=== PATIENT | male | born 1945 | race Caucasian/White ===

== ENCOUNTER 2021-03-26 01:31 | Inpatient (IN) | payer OTHER ==
[~2021-03-26] VITALS: Ht 175.3 cm; Wt 75.2 kg
[2021-03-26 02:22] LABS: Basophils # (auto) 0 10 ^3/uL (0-0.2); Basophils % (auto) 0.3 % (0.0-2.0); Eosinophils # (auto) 0 10 ^3/uL (0-0.8); Hematocrit 41.1 % (41.0-53.0); Hemoglobin 14.1 g/dL (13.5-17.5); Lymphocytes # (auto) 0.7 10 ^3/uL (0.4-5.4); Lymphocytes % (auto) 11.6 % (10.0-50.0); Mean Corpuscular Hemoglobin 30.3 pg (28.0-32.0); Mean Corpuscular Hgb Conc. 34.3 g/dL (32.0-36.0); Mean Corpuscular Volume 88.3 fL (80.0-100.0); Monocytes # (auto) 0.6 10 ^3/uL (0-1.3); Monocytes % (auto) 9.9 % (0.0-12.0); Neutrophils % (auto) 78.2 % (37.0-80.0); Nucleated Red Blood Cells % 0.1 %; Red Blood Cells 4.66 10^6/uL (4.5-5.90); Red Cell Distribution Width 13.8 % (11.8-14.3); White Blood Cell 6.4 10^3/uL (4.4-10.8)
[2021-03-26 02:36] LABS: INR 1.13 (0.9-1.15); Partial Thromboplastin Time 29.7 sec (23.6-33.0)
[2021-03-26 02:39] LABS: Alanine Aminotransferase 65 U/L (16-61); Albumin 2.5 g/dL (3.4-5.0); Anion Gap 9 (5-15); Aspartate Aminotransferase 91 U/L (15-37); BUN/Creatinine Ratio 19.6; Blood Urea Nitrogen 20 mg/dL (7-18); Calcium 8.4 mg/dL (8.5-10.1); Carbon Dioxide 25 mmol/L (21-32); Chloride 104 mmol/L (98-107); GFR African American 92 mL/min; GFR Non-African American 76 mL/min; Glucose 135 mg/dL (74-106); Magnesium 2.1 mg/dL (1.6-2.6); Potassium 4.1 mmol/L (3.5-5.1); Sodium 138 mmol/L (136-145)
[2021-03-26 02:44] LABS: Alkaline Phosphatase 106 U/L (45-117); Bilirubin, Total 0.4 mg/dL (0.2-1.0); Total Protein 6.5 g/dL (6.4-8.2)
[2021-03-26] MEDS ORDERED: IOHEXOL 350 MG/ML 100ML IJ ONE (04:12)
[2021-03-26] MEDS ORDERED: ONDANSETRON HCL 4 MG/2 ML VIAL IV PRN (06:15)
[2021-03-26] MEDS: SODIUM CHLORIDE 0.9% 1,000 ML IV SCH ×2 (06:15→23:00)
[2021-03-26] MEDS ORDERED: HYDROcodone-ACET 5/325MG TAB PO PRN (06:15)
[2021-03-26] MEDS ORDERED: NITROGLYCERIN 0.4 MG SL TAB SL PRN (06:15)
[2021-03-26] MEDS ORDERED: DOCUSATE SOD 100 MG CAP PO PRN (06:15)
[2021-03-26] MEDS ORDERED: MORPHINE SULFATE INJECTION 2 MG/ML SYRG IV PRN (06:15)
[2021-03-26 09:09] LABS: Basophils # (auto) 0 10 ^3/uL (0-0.2); Basophils % (auto) 0.4 % (0.0-2.0); Eosinophils # (auto) 0 10 ^3/uL (0-0.8); Hematocrit 42.4 % (41.0-53.0); Hemoglobin 14.3 g/dL (13.5-17.5); Lymphocytes % (auto) 14.6 % (10.0-50.0); Mean Corpuscular Hemoglobin 29.6 pg (28.0-32.0); Mean Corpuscular Hgb Conc. 33.7 g/dL (32.0-36.0); Mean Corpuscular Volume 87.8 fL (80.0-100.0); Monocytes # (auto) 0.7 10 ^3/uL (0-1.3); Monocytes % (auto) 9.7 % (0.0-12.0); Neutrophils # (auto) 5.2 10 ^3/uL (1.6-8.6); Neutrophils % (auto) 75.3 % (37.0-80.0); Nucleated Red Blood Cells % 0.1 %; Red Blood Cells 4.83 10^6/uL (4.5-5.90); Red Cell Distribution Width 13.3 % (11.8-14.3); White Blood Cell 6.9 10^3/uL (4.4-10.8)
[2021-03-26 09:17] LABS: Albumin 2.6 g/dL (3.4-5.0); Calcium 8.1 mg/dL (8.5-10.1); Magnesium 2.4 mg/dL (1.6-2.6)
[2021-03-26 09:20] LABS: BUN/Creatinine Ratio 21.5; Bilirubin, Total 0.4 mg/dL (0.2-1.0); Total Protein 5.8 g/dL (6.4-8.2)
[2021-03-26 09:27] LABS: Urine Bacteria NONE SEEN /hpf (None Seen); Urine Blood Negative /uL (Negative); Urine WBC <1 /hpf (0 - 3)
[2021-03-26 09:41] LABS: Urine Specific Gravity > 1.050 (1.001-1.035)
[2021-03-26] MEDS: BUDESONIDE (INHALATION) 180 MCG IH IN SCH ×3 (10:00→22:05)
[2021-03-26] MEDS ORDERED: AMLO5CAP40 PO (10:33)
[2021-03-26] MEDS ORDERED: ALBU2TAB4 PO (10:33)
[2021-03-26] MEDS ORDERED: MECL25TA18 PO (10:33)
[2021-03-26] MEDS ORDERED: FENO48TA12 OR (10:33)
[2021-03-26] MEDS ORDERED: SIMV-13 PO (10:33)
[2021-03-26] MEDS ORDERED: MONT-8 PO (10:33)
[2021-03-26] MEDS ORDERED: EZET10TA22 PO (10:34)
[2021-03-26] MEDS: DexAMETHasone SOD PHOS 10MG/1ML VIAL INJ IV SCH (11:23)
[2021-03-26] MEDS: MULTIPLE VITAMIN TAB PO SCH (11:24)
[2021-03-26] MEDS: FAMOTIDINE (10MG/ML) 2ML VL IV SCH ×2 (11:24→23:05)
[2021-03-26] MEDS: ZINC SULFATE 220mg CAP or TAB PO SCH (11:24)
[2021-03-26] MEDS: DOXYCYCLINE 100MG/250ML 250 ML IV SCH ×2 (11:24→22:50)
[2021-03-26] MEDS: ASCORBIC ACID 1,000 MG TAB PO SCH (11:25)
[2021-03-26] MEDS: CHOLECALCIFEROL (VITD3) 2,000 UNIT CAP/TAB PO SCH (11:25)
[2021-03-26] MEDS: ENOXAPARIN SOD 40 MG/0.4 ML SYRINGE SC SCH ×2 (11:26→22:55)
[2021-03-26] MEDS ORDERED: REMDESIVIR PER PHARMACY 0 ML IV SCH (12:00)
[2021-03-26] MEDS ORDERED: ALPRAZolam 0.25 MG TAB PO PRN (12:45)
[2021-03-26] MEDS: ACETAMINOPHEN 500 MG TAB PO PRN (13:05)
[2021-03-26 15:03] VITALS: BP 132/72
[2021-03-26 17:00] VITALS: BP 128/88
[2021-03-26] MEDS ORDERED: REMDESIVIR 200 MG in NS 210ml LOADING DOSE ADULT IV ONE (18:00)
[2021-03-26 22:00] VITALS: BP 103/39
[2021-03-26] MEDS: ALBUTEROL SULF HFA 90MCG INH 200DOSE IN PRN (22:08)
[2021-03-27] VITALS (26 sets, daily range): BP systolic 83–165; BP diastolic 47–100
[2021-03-27] MEDS: LORazepam 2MG/ML-1ML VIAL IV PRN ×3 (00:45→13:37)
[2021-03-27 05:58] LABS: Basophils # (auto) 0.1 10 ^3/uL (0-0.2); Basophils % (auto) 0.5 % (0.0-2.0); Eosinophils # (auto) 0 10 ^3/uL (0-0.8); Hematocrit 44.2 % (41.0-53.0); Hemoglobin 14.9 g/dL (13.5-17.5); Lymphocytes # (auto) 0.9 10 ^3/uL (0.4-5.4); Lymphocytes % (auto) 5.3 % (10.0-50.0); Mean Corpuscular Hemoglobin 29.9 pg (28.0-32.0); Mean Corpuscular Hgb Conc. 33.8 g/dL (32.0-36.0); Mean Corpuscular Volume 88.4 fL (80.0-100.0); Monocytes # (auto) 0.6 10 ^3/uL (0-1.3); Monocytes % (auto) 3.4 % (0.0-12.0); Neutrophils # (auto) 15.1 10 ^3/uL (1.6-8.6); Neutrophils % (auto) 90.8 % (37.0-80.0); Red Cell Distribution Width 13.8 % (11.8-14.3); White Blood Cell 16.7 10^3/uL (4.4-10.8)
[2021-03-27] MEDS: BUDESONIDE (INHALATION) 180 MCG IH IN SCH ×3 (06:00→22:00)
[2021-03-27] MEDS: ALBUTEROL SULF HFA 90MCG INH 200DOSE IN PRN (06:00)
[2021-03-27 06:16] LABS: Albumin 2.2 g/dL (3.4-5.0); BUN/Creatinine Ratio 17.3; Calcium 8.6 mg/dL (8.5-10.1); Potassium 3.9 mmol/L (3.5-5.1)
[2021-03-27 06:18] LABS: Bilirubin, Total 0.7 mg/dL (0.2-1.0); Total Protein 6.5 g/dL (6.4-8.2)
[2021-03-27] MEDS ORDERED: HALOPERIDOL LACTATE 5 MG/ML INJ VIAL IM PRN (09:30)
[2021-03-27] MEDS ORDERED: HALOPERIDOL LACTATE 5 MG/ML INJ VIAL ONE (09:39)
[2021-03-27] MEDS: CHOLECALCIFEROL (VITD3) 2,000 UNIT CAP/TAB PO SCH (10:00)
[2021-03-27] MEDS: MULTIPLE VITAMIN TAB PO SCH (10:00)
[2021-03-27] MEDS: ZINC SULFATE 220mg CAP or TAB PO SCH (10:00)
[2021-03-27] MEDS ORDERED: IVERMECTIN 3 MG TAB PO SCH (10:00)
[2021-03-27] MEDS: ASCORBIC ACID 1,000 MG TAB PO SCH (10:00)
[2021-03-27] MEDS: FAMOTIDINE (10MG/ML) 2ML VL IV SCH ×2 (10:05→23:41)
[2021-03-27] MEDS: DOXYCYCLINE 100MG/250ML 250 ML IV SCH ×2 (10:05→23:42)
[2021-03-27] MEDS: DexAMETHasone SOD PHOS 10MG/1ML VIAL INJ IV SCH (10:05)
[2021-03-27] MEDS: ENOXAPARIN SOD 40 MG/0.4 ML SYRINGE SC SCH ×2 (10:06→23:42)
[2021-03-27] MEDS: REMDESIVIR 100mg 100 MG in SODIUM CHL 0.9% 230 ML IV SCH (16:04)
[2021-03-27] MEDS ORDERED: fentaNYL Drip 2500mCg/250mlNS 250 ML IV ONE (16:26)
[2021-03-27] MEDS ORDERED: MIDAZOLAM DRIP 50 mg/50mL 50 ML IV ONE (16:26)
[2021-03-27] MEDS ORDERED: PROPOFOL 100 ML IV ONE (16:27)
[2021-03-27] MEDS ORDERED: ETOMIDATE (2MG/ML) 20ML VIAL IV ONE (16:27)
[2021-03-27] MEDS ORDERED: ROCURONIUM 10MG/ML 10ML VIAL IV ONE (16:28)
[2021-03-27] MEDS: PROPOFOL 100 ML IV SCH (17:47)
[2021-03-27] MEDS: fentaNYL Drip 2500mCg/250mlNS 250 ML IV SCH (17:47)
[2021-03-27] MEDS: IVERMECTIN 3 MG TAB PO SCH (19:00)
[2021-03-27] MEDS ORDERED: FUROSEMIDE 40 MG/4 ML VIAL IV ONE (19:30)
[2021-03-27] MEDS: NOREPINEPHRINE 8 MG/250ML KIT 250 ML IV SCH ×2 (20:00→23:44)
[2021-03-27] MEDS ORDERED: TOCILIZUMAB 400 MG in SODIUM CHL 0.9% 80 ML IV SCH (22:00)
[2021-03-27] MEDS: MIDAZOLAM DRIP 50 mg/50mL 50 ML IV SCH (23:39)
[2021-03-28] VITALS (107 sets, daily range): BP systolic 85–220; BP diastolic 45–157
[2021-03-28] MEDS: fentaNYL Drip 2500mCg/250mlNS 250 ML IV SCH ×2 (04:46→17:15)
[2021-03-28 04:51] LABS: Basophils # (auto) 0 10 ^3/uL (0-0.2); Basophils % (auto) 0.2 % (0.0-2.0); Eosinophils # (auto) 0 10 ^3/uL (0-0.8); Hemoglobin 13.8 g/dL (13.5-17.5); Lymphocytes % (auto) 5.3 % (10.0-50.0); Mean Corpuscular Hemoglobin 29.6 pg (28.0-32.0); Mean Corpuscular Hgb Conc. 33.7 g/dL (32.0-36.0); Mean Corpuscular Volume 87.9 fL (80.0-100.0); Monocytes # (auto) 0.7 10 ^3/uL (0-1.3); Monocytes % (auto) 3.7 % (0.0-12.0); Neutrophils # (auto) 17.8 10 ^3/uL (1.6-8.6); Neutrophils % (auto) 90.8 % (37.0-80.0); Red Blood Cells 4.66 10^6/uL (4.5-5.90); Red Cell Distribution Width 13.7 % (11.8-14.3); White Blood Cell 19.6 10^3/uL (4.4-10.8)
[2021-03-28 05:09] LABS: BUN/Creatinine Ratio 29.5; Calcium 8.6 mg/dL (8.5-10.1); Potassium 3.6 mmol/L (3.5-5.1)
[2021-03-28 08:25] LABS: Bilirubin, Direct 0.5 mg/dL (0-0.2); Bilirubin, Total 0.7 mg/dL (0.2-1.0)
[2021-03-28] MEDS: FAMOTIDINE (10MG/ML) 2ML VL IV SCH (09:37)
[2021-03-28] MEDS: DexAMETHasone SOD PHOS 10MG/1ML VIAL INJ IV SCH (09:37)
[2021-03-28] MEDS: ENOXAPARIN SOD 40 MG/0.4 ML SYRINGE SC SCH ×2 (09:37→22:25)
[2021-03-28] MEDS: DOXYCYCLINE 100MG/250ML 250 ML IV SCH ×2 (09:38→22:24)
[2021-03-28] MEDS: PROPOFOL 100 ML IV SCH ×3 (11:51→18:37)
[2021-03-28] MEDS: MULTIPLE VITAMIN TAB PO SCH (13:10)
[2021-03-28] MEDS: ZINC SULFATE 220mg CAP or TAB PO SCH (13:10)
[2021-03-28] MEDS: CHOLECALCIFEROL (VITD3) 2,000 UNIT CAP/TAB PO SCH (13:10)
[2021-03-28] MEDS: ASCORBIC ACID 1,000 MG TAB PO SCH (13:11)
[2021-03-28] MEDS: IVERMECTIN 3 MG TAB PO SCH (13:11)
[2021-03-28] MEDS: REMDESIVIR 100mg 100 MG in SODIUM CHL 0.9% 230 ML IV SCH (16:47)
[2021-03-28] MEDS: MIDAZOLAM DRIP 50 mg/50mL 50 ML IV SCH (19:00)
[2021-03-29] VITALS (103 sets, daily range): BP systolic 73–254; BP diastolic 49–216
[2021-03-29 03:24] LABS: Albumin 1.7 g/dL (3.4-5.0); BUN/Creatinine Ratio 32.8; Calcium 8.8 mg/dL (8.5-10.1); Hematocrit 37.8 % (41.0-53.0); Hemoglobin 13.1 g/dL (13.5-17.5); Mean Corpuscular Hemoglobin 30.4 pg (28.0-32.0); Mean Corpuscular Hgb Conc. 34.7 g/dL (32.0-36.0); Mean Corpuscular Volume 87.5 fL (80.0-100.0); Potassium 3.6 mmol/L (3.5-5.1); Red Blood Cells 4.32 10^6/uL (4.5-5.90); Red Cell Distribution Width 13.7 % (11.8-14.3); White Blood Cell 17.3 10^3/uL (4.4-10.8)
[2021-03-29 03:28] LABS: Bilirubin, Total 0.6 mg/dL (0.2-1.0); Total Protein 5.8 g/dL (6.4-8.2)
[2021-03-29 03:32] LABS: Basophils % (manual) 0 (0.0-2.0); Blast Cells 0; Eosinophils % (manual) 0 (0-7); Metamyelocytes % 0; Myelocytes % 0; Promyelocytes % 0; Reactive Lymphocytes 0
[2021-03-29] MEDS: fentaNYL Drip 2500mCg/250mlNS 250 ML IV SCH ×2 (06:15→18:32)
[2021-03-29 07:03] LABS: Band Neutrophils % (manual) 24; Lymphocytes % (manual) 4 (10.0-50.0); Monocytes % (manual) 7 (0-12)
[2021-03-29] MEDS: PROPOFOL 100 ML IV SCH ×2 (08:51→18:33)
[2021-03-29] MEDS: FAMOTIDINE (10MG/ML) 2ML VL IV SCH (09:45)
[2021-03-29] MEDS: ENOXAPARIN SOD 40 MG/0.4 ML SYRINGE SC SCH ×2 (09:45→21:05)
[2021-03-29] MEDS: MULTIPLE VITAMIN TAB PO SCH (09:45)
[2021-03-29] MEDS: DexAMETHasone SOD PHOS 10MG/1ML VIAL INJ IV SCH (09:45)
[2021-03-29] MEDS: ASCORBIC ACID 1,000 MG TAB PO SCH (09:45)
[2021-03-29] MEDS: CHOLECALCIFEROL (VITD3) 2,000 UNIT CAP/TAB PO SCH (09:45)
[2021-03-29] MEDS: ZINC SULFATE 220mg CAP or TAB PO SCH (09:45)
[2021-03-29] MEDS: DOXYCYCLINE 100MG/250ML 250 ML IV SCH ×2 (09:46→21:05)
[2021-03-29] MEDS: IVERMECTIN 3 MG TAB PO SCH (09:46)
[2021-03-29] MEDS ORDERED: Glucerna 1.2 Cal 1Liter BOTTLE GT SCH (10:00)
[2021-03-29] MEDS ORDERED: FUROSEMIDE 20 MG/2 ML VIAL IV ONE (13:45)
[2021-03-29] MEDS: METOCLOPRAMIDE HCL 5MG/ml INJ 2ml VIAL IV SCH ×2 (13:59→21:04)
[2021-03-29] MEDS: REMDESIVIR 100mg 100 MG in SODIUM CHL 0.9% 230 ML IV SCH (15:00)
[2021-03-29] MEDS: MIDAZOLAM DRIP 50 mg/50mL 50 ML IV SCH (19:00)
[2021-03-30] VITALS (105 sets, daily range): BP systolic 101–141; BP diastolic 46–75
[2021-03-30] MEDS: NOREPINEPHRINE 8 MG/250ML KIT 250 ML IV SCH ×2 (01:56→22:45)
[2021-03-30 04:36] LABS: Hematocrit 39.5 % (41.0-53.0); Hemoglobin 13.4 g/dL (13.5-17.5); Mean Corpuscular Hemoglobin 30.2 pg (28.0-32.0); Mean Corpuscular Volume 88.8 fL (80.0-100.0); Red Blood Cells 4.45 10^6/uL (4.5-5.90); Red Cell Distribution Width 14.1 % (11.8-14.3); White Blood Cell 22.8 10^3/uL (4.4-10.8)
[2021-03-30 04:52] LABS: Albumin 1.6 g/dL (3.4-5.0); BUN/Creatinine Ratio 40.7; Calcium 8.6 mg/dL (8.5-10.1); Potassium 4.3 mmol/L (3.5-5.1)
[2021-03-30 05:01] LABS: Bilirubin, Total 0.8 mg/dL (0.2-1.0); CRP High Sensitivity 7.42 mg/dL (< 0.3); Total Protein 5.4 g/dL (6.4-8.2)
[2021-03-30 05:06] LABS: Basophils % (manual) 0 (0.0-2.0); Blast Cells 0; Eosinophils % (manual) 0 (0-7); Metamyelocytes % 0; Promyelocytes % 0; Reactive Lymphocytes 0
[2021-03-30] MEDS: METOCLOPRAMIDE HCL 5MG/ml INJ 2ml VIAL IV SCH ×3 (06:37→22:24)
[2021-03-30] MEDS: fentaNYL Drip 2500mCg/250mlNS 250 ML IV SCH ×2 (06:38→17:17)
[2021-03-30 07:01] LABS: Band Neutrophils % (manual) 19; Lymphocytes % (manual) 2 (10.0-50.0); Monocytes % (manual) 2 (0-12); Myelocytes % 4
[2021-03-30] MEDS: ENOXAPARIN SOD 40 MG/0.4 ML SYRINGE SC SCH (10:18)
[2021-03-30] MEDS: DOXYCYCLINE 100MG/250ML 250 ML IV SCH ×2 (10:19→22:24)
[2021-03-30] MEDS: PROPOFOL 100 ML IV SCH (10:21)
[2021-03-30] MEDS: CHOLECALCIFEROL (VITD3) 2,000 UNIT CAP/TAB PO SCH (10:22)
[2021-03-30] MEDS: MULTIPLE VITAMIN TAB PO SCH (10:22)
[2021-03-30] MEDS: IVERMECTIN 3 MG TAB PO SCH (10:22)
[2021-03-30] MEDS: ZINC SULFATE 220mg CAP or TAB PO SCH (10:22)
[2021-03-30] MEDS: ASCORBIC ACID 1,000 MG TAB PO SCH (10:22)
[2021-03-30] MEDS: DexAMETHasone SOD PHOS 10MG/1ML VIAL INJ IV SCH (10:23)
[2021-03-30] MEDS: FAMOTIDINE (10MG/ML) 2ML VL IV SCH (10:23)
[2021-03-30] MEDS: REMDESIVIR 100mg 100 MG in SODIUM CHL 0.9% 230 ML IV SCH (15:38)
[2021-03-30] MEDS ORDERED: VANCOMYCIN PER PHARMACY 0 MG IV SCH (15:45)
[2021-03-30] MEDS ORDERED: DEXTROSE (50%) 50ML SYRG IV PRN (17:30)
[2021-03-30] MEDS: MIDAZOLAM DRIP 50 mg/50mL 50 ML IV SCH ×2 (18:20→19:00)
[2021-03-30] MEDS: ACCU-CHEK COMFORT CURVE STRIP VI SCH (18:20)
[2021-03-30] MEDS: InsuLIN REG 1unit/0.01ml Soln (100units/ml) SC SCH (18:25)
[2021-03-30] MEDS: VANCOMYCIN 750mg/250ml 250 ML IV SCH (18:50)
[2021-03-30] MEDS: ENOXAPARIN SOD 80 MG/0.8ML SYRINGE SC SCH (22:24)
[2021-03-31] VITALS (103 sets, daily range): BP systolic 116–142; BP diastolic 60–75
[2021-03-31] MEDS: InsuLIN REG 1unit/0.01ml Soln (100units/ml) SC SCH ×4 (00:46→18:00)
[2021-03-31 04:17] LABS: Hematocrit 39.4 % (41.0-53.0); Hemoglobin 12.9 g/dL (13.5-17.5); Mean Corpuscular Hemoglobin 29.3 pg (28.0-32.0); Mean Corpuscular Hgb Conc. 32.9 g/dL (32.0-36.0); Mean Corpuscular Volume 89.1 fL (80.0-100.0); Red Blood Cells 4.42 10^6/uL (4.5-5.90); Red Cell Distribution Width 13.9 % (11.8-14.3); White Blood Cell 22.8 10^3/uL (4.4-10.8)
[2021-03-31 04:21] LABS: Basophils % (manual) 0 (0.0-2.0); Blast Cells 0; Eosinophils % (manual) 0 (0-7); Promyelocytes % 0; Reactive Lymphocytes 0
[2021-03-31 04:33] LABS: Albumin 1.6 g/dL (3.4-5.0); Calcium 8.6 mg/dL (8.5-10.1); Potassium 3.8 mmol/L (3.5-5.1)
[2021-03-31 04:39] LABS: Band Neutrophils % (manual) 18; Lymphocytes % (manual) 5 (10.0-50.0); Metamyelocytes % 2; Monocytes % (manual) 2 (0-12); Myelocytes % 1
[2021-03-31 04:41] LABS: BUN/Creatinine Ratio 42.4; Bilirubin, Total 0.9 mg/dL (0.2-1.0); CRP High Sensitivity 7.18 mg/dL (< 0.3); Total Protein 5.4 g/dL (6.4-8.2)
[2021-03-31] MEDS: fentaNYL Drip 2500mCg/250mlNS 250 ML IV SCH (05:14)
[2021-03-31] MEDS: VANCOMYCIN 750mg/250ml 250 ML IV SCH ×2 (06:28→17:00)
[2021-03-31] MEDS: ACCU-CHEK COMFORT CURVE STRIP VI SCH ×4 (06:28→18:00)
[2021-03-31] MEDS: METOCLOPRAMIDE HCL 5MG/ml INJ 2ml VIAL IV SCH ×3 (06:28→21:27)
[2021-03-31] MEDS: FAMOTIDINE (10MG/ML) 2ML VL IV SCH ×2 (10:14→21:27)
[2021-03-31] MEDS: DexAMETHasone SOD PHOS 10MG/1ML VIAL INJ IV SCH (10:14)
[2021-03-31] MEDS: ZINC SULFATE 220mg CAP or TAB PO SCH (10:15)
[2021-03-31] MEDS: ASCORBIC ACID 1,000 MG TAB PO SCH (10:16)
[2021-03-31] MEDS: MULTIPLE VITAMIN TAB PO SCH (10:16)
[2021-03-31] MEDS: ENOXAPARIN SOD 80 MG/0.8ML SYRINGE SC SCH ×2 (10:16→21:27)
[2021-03-31] MEDS: CHOLECALCIFEROL (VITD3) 2,000 UNIT CAP/TAB PO SCH (10:16)
[2021-03-31] MEDS: IVERMECTIN 3 MG TAB PO SCH (10:16)
[2021-03-31] MEDS: PROPOFOL 100 ML IV SCH (12:58)
[2021-03-31] MEDS: MIDAZOLAM DRIP 50 mg/50mL 50 ML IV SCH (12:59)
[2021-03-31] MEDS ORDERED: cefTRIAXone 1GM/50ML D5W 50 ML IV ONE (15:15)
[2021-03-31] MEDS ORDERED: ROCURONIUM 10MG/ML 10ML VIAL IV ONE ×2 (17:49→19:45)
[2021-03-31] MEDS ORDERED: FUROSEMIDE 40 MG/4 ML VIAL IV ONE (19:45)
[2021-03-31] MEDS: NOREPINEPHRINE 8 MG/250ML KIT 250 ML IV SCH (22:45)
[2021-04-01] VITALS (106 sets, daily range): BP systolic 97–137; BP diastolic 54–75
[2021-04-01] MEDS: ACCU-CHEK COMFORT CURVE STRIP VI SCH ×5 (00:49→23:31)
[2021-04-01] MEDS: InsuLIN REG 1unit/0.01ml Soln (100units/ml) SC SCH ×5 (00:50→23:31)
[2021-04-01] MEDS: fentaNYL Drip 2500mCg/250mlNS 250 ML IV SCH ×2 (04:19→17:39)
[2021-04-01] MEDS: PROPOFOL 100 ML IV SCH ×3 (04:20→20:05)
[2021-04-01] MEDS: MIDAZOLAM DRIP 50 mg/50mL 50 ML IV SCH ×2 (04:20→20:04)
[2021-04-01] MEDS: VANCOMYCIN 750mg/250ml 250 ML IV SCH (04:48)
[2021-04-01 05:08] LABS: Hematocrit 39.9 % (41.0-53.0); Hemoglobin 13.3 g/dL (13.5-17.5); Mean Corpuscular Hemoglobin 29.7 pg (28.0-32.0); Mean Corpuscular Hgb Conc. 33.3 g/dL (32.0-36.0); Mean Corpuscular Volume 89.1 fL (80.0-100.0); Red Blood Cells 4.48 10^6/uL (4.5-5.90); Red Cell Distribution Width 14.2 % (11.8-14.3); White Blood Cell 25.1 10^3/uL (4.4-10.8)
[2021-04-01 05:31] LABS: Basophils % (manual) 0 (0.0-2.0); Blast Cells 0; Eosinophils % (manual) 0 (0-7); Promyelocytes % 0; Reactive Lymphocytes 0
[2021-04-01 05:40] LABS: Anion Gap 6 (5-15); Blood Urea Nitrogen 41 mg/dL (7-18); Calcium 8.9 mg/dL (8.5-10.1); Carbon Dioxide 24 mmol/L (21-32); Chloride 112 mmol/L (98-107); Glucose 138 mg/dL (74-106); Potassium 3.9 mmol/L (3.5-5.1); Sodium 142 mmol/L (136-145)
[2021-04-01] MEDS: METOCLOPRAMIDE HCL 5MG/ml INJ 2ml VIAL IV SCH ×3 (05:47→21:36)
[2021-04-01 05:49] LABS: BUN/Creatinine Ratio 45.1; GFR African American 105 mL/min; GFR Non-African American 87 mL/min
[2021-04-01 06:00] LABS: CRP High Sensitivity > 19.0 mg/dL (< 0.3)
[2021-04-01 07:26] LABS: Band Neutrophils % (manual) 22; Lymphocytes % (manual) 2 (10.0-50.0); Metamyelocytes % 3; Monocytes % (manual) 2 (0-12); Myelocytes % 1
[2021-04-01] MEDS: cefTRIAXone 1GM/50ML D5W 50 ML IV SCH (10:40)
[2021-04-01] MEDS: FAMOTIDINE (10MG/ML) 2ML VL IV SCH ×2 (10:40→21:36)
[2021-04-01] MEDS: DexAMETHasone SOD PHOS 10MG/1ML VIAL INJ IV SCH (10:40)
[2021-04-01] MEDS: MULTIPLE VITAMIN TAB PO SCH (10:41)
[2021-04-01] MEDS: CHOLECALCIFEROL (VITD3) 2,000 UNIT CAP/TAB PO SCH (10:41)
[2021-04-01] MEDS: ZINC SULFATE 220mg CAP or TAB PO SCH (10:41)
[2021-04-01] MEDS: ASCORBIC ACID 1,000 MG TAB PO SCH (10:41)
[2021-04-01] MEDS: IVERMECTIN 3 MG TAB PO SCH (10:41)
[2021-04-01] MEDS: ENOXAPARIN SOD 80 MG/0.8ML SYRINGE SC SCH ×2 (10:41→21:36)
[2021-04-01] MEDS: ALBUTEROL SULF 2.5 MG/0.5ML(0.5%) NEB SOLN NEB PRN (14:25)
[2021-04-01] MEDS: VANCOMYCIN 1GM/250ML 250 ML IV SCH (17:35)
[2021-04-01] MEDS ORDERED: FUROSEMIDE 40 MG/4 ML VIAL IV ONE (17:45)
[2021-04-01] MEDS: ATORVASTATIN 20 MG TAB PO SCH (21:37)
[2021-04-01] MEDS: NOREPINEPHRINE 8 MG/250ML KIT 250 ML IV SCH (22:45)
[2021-04-02] VITALS (103 sets, daily range): BP systolic 10–133; BP diastolic 55–78
[2021-04-02 04:13] LABS: Calcium 9.1 mg/dL (8.5-10.1); Potassium 3.9 mmol/L (3.5-5.1)
[2021-04-02 04:15] LABS: BUN/Creatinine Ratio 47.9
[2021-04-02 04:31] LABS: Hematocrit 36.6 % (41.0-53.0); Hemoglobin 12.5 g/dL (13.5-17.5); Mean Corpuscular Hemoglobin 30.6 pg (28.0-32.0); Mean Corpuscular Hgb Conc. 34.2 g/dL (32.0-36.0); Mean Corpuscular Volume 89.5 fL (80.0-100.0); Red Blood Cells 4.08 10^6/uL (4.5-5.90); Red Cell Distribution Width 14.4 % (11.8-14.3); White Blood Cell 20.9 10^3/uL (4.4-10.8)
[2021-04-02 04:48] LABS: Basophils % (manual) 0 (0.0-2.0); Blast Cells 0; Eosinophils % (manual) 0 (0-7); Metamyelocytes % 0; Promyelocytes % 0; Reactive Lymphocytes 0
[2021-04-02] MEDS: VANCOMYCIN 1GM/250ML 250 ML IV SCH ×2 (05:00→17:10)
[2021-04-02] MEDS: METOCLOPRAMIDE HCL 5MG/ml INJ 2ml VIAL IV SCH ×3 (05:55→21:39)
[2021-04-02] MEDS: ACCU-CHEK COMFORT CURVE STRIP VI SCH ×3 (05:55→18:00)
[2021-04-02] MEDS: InsuLIN REG 1unit/0.01ml Soln (100units/ml) SC SCH ×3 (05:57→18:00)
[2021-04-02 06:12] LABS: Band Neutrophils % (manual) 23; Lymphocytes % (manual) 4 (10.0-50.0); Monocytes % (manual) 3 (0-12)
[2021-04-02 06:13] LABS: Myelocytes % 1
[2021-04-02] MEDS: ALBUTEROL SULF 2.5 MG/0.5ML(0.5%) NEB SOLN NEB PRN (06:14)
[2021-04-02] MEDS: cefTRIAXone 1GM/50ML D5W 50 ML IV SCH (09:22)
[2021-04-02] MEDS: PROPOFOL 100 ML IV SCH ×3 (09:30→17:22)
[2021-04-02] MEDS: ASCORBIC ACID 1,000 MG TAB PO SCH (09:47)
[2021-04-02] MEDS: CHOLECALCIFEROL (VITD3) 2,000 UNIT CAP/TAB PO SCH (09:47)
[2021-04-02] MEDS: FAMOTIDINE (10MG/ML) 2ML VL IV SCH ×2 (09:47→21:39)
[2021-04-02] MEDS: DexAMETHasone SOD PHOS 10MG/1ML VIAL INJ IV SCH (09:47)
[2021-04-02] MEDS: MULTIPLE VITAMIN TAB PO SCH (09:48)
[2021-04-02] MEDS: ZINC SULFATE 220mg CAP or TAB PO SCH (09:48)
[2021-04-02] MEDS: ENOXAPARIN SOD 80 MG/0.8ML SYRINGE SC SCH ×2 (09:48→21:39)
[2021-04-02] MEDS: ACETAMINOPHEN 500 MG TAB PO PRN (10:50)
[2021-04-02] MEDS: fentaNYL Drip 2500mCg/250mlNS 250 ML IV SCH (15:25)
[2021-04-02] MEDS: MIDAZOLAM DRIP 50 mg/50mL 50 ML IV SCH (17:23)
[2021-04-02] MEDS: ATORVASTATIN 20 MG TAB PO SCH (21:39)
[2021-04-02] MEDS: NOREPINEPHRINE 8 MG/250ML KIT 250 ML IV SCH (22:45)
[2021-04-02] MEDS ORDERED: FUROSEMIDE 40 MG/4 ML VIAL IV ONE (23:45)
[2021-04-03] VITALS (101 sets, daily range): BP systolic 90–193; BP diastolic 49–134
[2021-04-03] MEDS: ACCU-CHEK COMFORT CURVE STRIP VI SCH ×4 (00:28→17:30)
[2021-04-03] MEDS: InsuLIN REG 1unit/0.01ml Soln (100units/ml) SC SCH ×5 (00:29→17:30)
[2021-04-03 04:19] LABS: Hematocrit 36.1 % (41.0-53.0); Hemoglobin 12.1 g/dL (13.5-17.5); Mean Corpuscular Hemoglobin 29.7 pg (28.0-32.0); Mean Corpuscular Hgb Conc. 33.5 g/dL (32.0-36.0); Mean Corpuscular Volume 88.5 fL (80.0-100.0); Red Blood Cells 4.07 10^6/uL (4.5-5.90); Red Cell Distribution Width 14.4 % (11.8-14.3); White Blood Cell 23.5 10^3/uL (4.4-10.8)
[2021-04-03 04:30] LABS: Basophils % (manual) 0 (0.0-2.0); Blast Cells 0; Promyelocytes % 0; Reactive Lymphocytes 0
[2021-04-03 04:37] LABS: Potassium 3.7 mmol/L (3.5-5.1)
[2021-04-03 04:44] LABS: Albumin 1.2 g/dL (3.4-5.0); BUN/Creatinine Ratio 54.8; Calcium 8.8 mg/dL (8.5-10.1)
[2021-04-03 04:46] LABS: Bilirubin, Total 0.7 mg/dL (0.2-1.0); Total Protein 5.6 g/dL (6.4-8.2)
[2021-04-03] MEDS: VANCOMYCIN 1GM/250ML 250 ML IV SCH ×2 (05:14→23:00)
[2021-04-03 05:36] LABS: Band Neutrophils % (manual) 33; Eosinophils % (manual) 1 (0-7); Lymphocytes % (manual) 4 (10.0-50.0); Metamyelocytes % 4; Monocytes % (manual) 4 (0-12); Myelocytes % 3
[2021-04-03] MEDS: METOCLOPRAMIDE HCL 5MG/ml INJ 2ml VIAL IV SCH ×3 (06:25→22:13)
[2021-04-03] MEDS: PROPOFOL 100 ML IV SCH ×3 (06:33→21:00)
[2021-04-03] MEDS: fentaNYL Drip 2500mCg/250mlNS 250 ML IV SCH (06:34)
[2021-04-03] MEDS: MIDAZOLAM DRIP 50 mg/50mL 50 ML IV SCH ×2 (06:34→14:20)
[2021-04-03] MEDS: cefTRIAXone 1GM/50ML D5W 50 ML IV SCH (08:59)
[2021-04-03] MEDS: ENOXAPARIN SOD 80 MG/0.8ML SYRINGE SC SCH ×2 (09:34→22:14)
[2021-04-03] MEDS: MULTIPLE VITAMIN TAB PO SCH (09:34)
[2021-04-03] MEDS: CHOLECALCIFEROL (VITD3) 2,000 UNIT CAP/TAB PO SCH (09:34)
[2021-04-03] MEDS: ASCORBIC ACID 1,000 MG TAB PO SCH (09:34)
[2021-04-03] MEDS: ZINC SULFATE 220mg CAP or TAB PO SCH (09:34)
[2021-04-03] MEDS: FAMOTIDINE (10MG/ML) 2ML VL IV SCH ×2 (09:34→22:13)
[2021-04-03] MEDS: DexAMETHasone SOD PHOS 10MG/1ML VIAL INJ IV SCH (09:34)
[2021-04-03] MEDS: MEROPENEM 1GM IVPB 100 ML IV SCH ×2 (13:34→22:13)
[2021-04-03] MEDS: ACETAMINOPHEN 500 MG TAB PO PRN (20:00)
[2021-04-03] MEDS: ATORVASTATIN 20 MG TAB PO SCH (22:14)
[2021-04-03] MEDS: NOREPINEPHRINE 8 MG/250ML KIT 250 ML IV SCH (22:45)
[2021-04-04] VITALS (107 sets, daily range): BP systolic 47–155; BP diastolic 39–74
[2021-04-04] MEDS: MIDAZOLAM DRIP 50 mg/50mL 50 ML IV SCH ×3 (01:39→23:00)
[2021-04-04] MEDS: PROPOFOL 100 ML IV SCH ×4 (02:00→21:00)
[2021-04-04 04:52] LABS: Hematocrit 34.3 % (41.0-53.0); Hemoglobin 11.3 g/dL (13.5-17.5); Mean Corpuscular Hemoglobin 29.5 pg (28.0-32.0); Mean Corpuscular Volume 89.4 fL (80.0-100.0); Red Blood Cells 3.84 10^6/uL (4.5-5.90); Red Cell Distribution Width 14.4 % (11.8-14.3); White Blood Cell 29.4 10^3/uL (4.4-10.8)
[2021-04-04] MEDS: fentaNYL Drip 2500mCg/250mlNS 250 ML IV SCH ×2 (05:00→16:36)
[2021-04-04 05:12] LABS: Basophils % (manual) 0 (0.0-2.0); Blast Cells 0; Eosinophils % (manual) 0 (0-7); Myelocytes % 0; Promyelocytes % 0; Reactive Lymphocytes 0
[2021-04-04 05:13] LABS: BUN/Creatinine Ratio 63.8; Calcium 9.5 mg/dL (8.5-10.1); Potassium 4.5 mmol/L (3.5-5.1)
[2021-04-04] MEDS: MEROPENEM 1GM IVPB 100 ML IV SCH ×3 (05:30→22:00)
[2021-04-04] MEDS: InsuLIN REG 1unit/0.01ml Soln (100units/ml) SC SCH ×4 (05:31→17:40)
[2021-04-04] MEDS: ACCU-CHEK COMFORT CURVE STRIP VI SCH ×4 (05:31→17:40)
[2021-04-04] MEDS: METOCLOPRAMIDE HCL 5MG/ml INJ 2ml VIAL IV SCH ×3 (05:31→22:00)
[2021-04-04 08:20] LABS: Band Neutrophils % (manual) 26; Lymphocytes % (manual) 3 (10.0-50.0); Metamyelocytes % 5; Monocytes % (manual) 6 (0-12)
[2021-04-04] MEDS: ASCORBIC ACID 1,000 MG TAB PO SCH (09:57)
[2021-04-04] MEDS: CHOLECALCIFEROL (VITD3) 2,000 UNIT CAP/TAB PO SCH (09:57)
[2021-04-04] MEDS: DexAMETHasone SOD PHOS 10MG/1ML VIAL INJ IV SCH (09:57)
[2021-04-04] MEDS: MULTIPLE VITAMIN TAB PO SCH (09:57)
[2021-04-04] MEDS: FAMOTIDINE (10MG/ML) 2ML VL IV SCH ×2 (09:57→22:00)
[2021-04-04] MEDS: ENOXAPARIN SOD 80 MG/0.8ML SYRINGE SC SCH ×2 (09:58→22:00)
[2021-04-04] MEDS: ZINC SULFATE 220mg CAP or TAB PO SCH (10:00)
[2021-04-04] MEDS: ACETAMINOPHEN 500 MG TAB PO PRN (14:55)
[2021-04-04] MEDS: VANCOMYCIN 1GM/250ML 250 ML IV SCH (16:33)
[2021-04-04] MEDS: NOREPINEPHRINE 8 MG/250ML KIT 250 ML IV SCH (21:16)
[2021-04-04] MEDS: ATORVASTATIN 20 MG TAB PO SCH (22:00)
[2021-04-04] MEDS ORDERED: PHENYLEPHRINE IV 250 ML IV ONE (23:41)
[2021-04-04] MEDS ORDERED: SODIUM BICARBONATE 8.4% INJ 50ML SYRINGE ONE (23:41)
[2021-04-04] MEDS ORDERED: SODIUM BICARBONATE 8.4 % INJ 50ML VIAL IV ONE (23:44)
[2021-04-04] MEDS: PHENYLEPHRINE IV 250 ML IV SCH (23:45)
[2021-04-04] MEDS: SODIUM BICARBONATE 50ML VIAL 100 ML in SOD CHL 0.45% 1,000 ML IV SCH (23:45)
[2021-04-05] VITALS (73 sets, daily range): BP systolic 61–177; BP diastolic 53–87
[2021-04-05 00:14] LABS: Hemoglobin 12.5 g/dL (13.5-17.5); Red Blood Cells 4.33 10^6/uL (4.5-5.90)
[2021-04-05 00:17] LABS: Hematocrit 39.7 % (41.0-53.0); Mean Corpuscular Hemoglobin 28.9 pg (28.0-32.0); Mean Corpuscular Hgb Conc. 31.5 g/dL (32.0-36.0); Mean Corpuscular Volume 91.8 fL (80.0-100.0)
[2021-04-05 00:31] LABS: BUN/Creatinine Ratio 35.1; Calcium 9.3 mg/dL (8.5-10.1)
[2021-04-05 00:32] LABS: White Blood Cell 49.4 10^3/uL (4.4-10.8)
[2021-04-05 00:33] LABS: Basophils % (manual) 0 (0.0-2.0); Blast Cells 0; Promyelocytes % 0; Reactive Lymphocytes 0
[2021-04-05 00:45] LABS: Total Protein 5.6 g/dL (6.4-8.2)
[2021-04-05 00:51] LABS: Potassium 6.8 mmol/L (3.5-5.1)
[2021-04-05 01:26] LABS: Band Neutrophils % (manual) 47; Eosinophils % (manual) 1 (0-7); Lymphocytes % (manual) 4 (10.0-50.0); Metamyelocytes % 2; Monocytes % (manual) 3 (0-12); Myelocytes % 15
[2021-04-05] MEDS ORDERED: InsuLIN REG 1unit/0.01ml Soln (100units/ml) IV ONE (01:45)
[2021-04-05] MEDS ORDERED: ALBUTEROL SULF 2.5 MG/0.5ML(0.5%) NEB SOLN NEB ONE (01:45)
[2021-04-05] MEDS ORDERED: DEXTROSE (50%) 50ML SYRG IV ONE (01:45)
[2021-04-05] MEDS ORDERED: SODIUM BICARBONATE 8.4% INJ 50ML SYRINGE IV ONE (01:45)
[2021-04-05] MEDS ORDERED: CALCIUM GLUC 1,000mg/50ml-NS 50 ML IV ONE (01:45)
[2021-04-05] MEDS: PROPOFOL 100 ML IV SCH ×4 (04:00→16:27)
[2021-04-05] MEDS: NOREPINEPHRINE 8 MG/250ML KIT 250 ML IV SCH ×2 (04:00→13:43)
[2021-04-05 04:22] LABS: Hemoglobin 12.9 g/dL (13.5-17.5); Red Cell Distribution Width 14.5 % (11.8-14.3)
[2021-04-05 04:24] LABS: Hematocrit 38.6 % (41.0-53.0); Mean Corpuscular Hemoglobin 29.6 pg (28.0-32.0); Mean Corpuscular Hgb Conc. 33.4 g/dL (32.0-36.0); Mean Corpuscular Volume 88.6 fL (80.0-100.0); Red Blood Cells 4.36 10^6/uL (4.5-5.90)
[2021-04-05 04:34] LABS: Calcium 8.8 mg/dL (8.5-10.1); Potassium 4.7 mmol/L (3.5-5.1)
[2021-04-05 04:39] LABS: White Blood Cell 41.8 10^3/uL (4.4-10.8)
[2021-04-05 04:41] LABS: Basophils % (manual) 0 (0.0-2.0); Blast Cells 0; Eosinophils % (manual) 0 (0-7); Promyelocytes % 0; Reactive Lymphocytes 0
[2021-04-05] MEDS: ACETAMINOPHEN 500 MG TAB PO PRN (04:41)
[2021-04-05 04:54] LABS: BUN/Creatinine Ratio 42.5; Bilirubin, Total 1.3 mg/dL (0.2-1.0); Total Protein 5.5 g/dL (6.4-8.2)
[2021-04-05 05:16] LABS: Albumin 0.9 g/dL (3.4-5.0)
[2021-04-05 05:52] LABS: Band Neutrophils % (manual) 43; Lymphocytes % (manual) 3 (10.0-50.0); Metamyelocytes % 5; Monocytes % (manual) 1 (0-12); Myelocytes % 11
[2021-04-05] MEDS: METOCLOPRAMIDE HCL 5MG/ml INJ 2ml VIAL IV SCH ×2 (06:00→13:44)
[2021-04-05] MEDS: ACCU-CHEK COMFORT CURVE STRIP VI SCH ×4 (06:00→18:00)
[2021-04-05] MEDS: MEROPENEM 1GM IVPB 100 ML IV SCH ×2 (06:00→13:44)
[2021-04-05] MEDS: InsuLIN REG 1unit/0.01ml Soln (100units/ml) SC SCH ×4 (06:00→18:00)
[2021-04-05] MEDS: MIDAZOLAM DRIP 50 mg/50mL 50 ML IV SCH ×2 (07:21→16:26)
[2021-04-05] MEDS: fentaNYL Drip 2500mCg/250mlNS 250 ML IV SCH (07:22)
[2021-04-05] MEDS: SODIUM BICARBONATE 50ML VIAL 100 ML in SOD CHL 0.45% 1,000 ML IV SCH (08:30)
[2021-04-05] MEDS: PHENYLEPHRINE IV 250 ML IV SCH ×2 (09:12→13:41)
[2021-04-05] MEDS: ENOXAPARIN SOD 80 MG/0.8ML SYRINGE SC SCH (09:43)
[2021-04-05] MEDS: ZINC SULFATE 220mg CAP or TAB PO SCH (09:43)
[2021-04-05] MEDS: MULTIPLE VITAMIN TAB PO SCH (09:43)
[2021-04-05] MEDS: FAMOTIDINE (10MG/ML) 2ML VL IV SCH (09:43)
[2021-04-05] MEDS: CHOLECALCIFEROL (VITD3) 2,000 UNIT CAP/TAB PO SCH (09:43)
[2021-04-05] MEDS: DexAMETHasone SOD PHOS 10MG/1ML VIAL INJ IV SCH (09:43)
[2021-04-05] MEDS: ASCORBIC ACID 1,000 MG TAB PO SCH (09:43)
[2021-04-05 10:26] LABS: Hemoglobin 12.8 g/dL (13.5-17.5); Mean Corpuscular Hemoglobin 29.4 pg (28.0-32.0); Mean Corpuscular Hgb Conc. 32.7 g/dL (32.0-36.0); Mean Corpuscular Volume 89.7 fL (80.0-100.0); Red Blood Cells 4.35 10^6/uL (4.5-5.90); Red Cell Distribution Width 14.3 % (11.8-14.3)
[2021-04-05 10:31] LABS: BUN/Creatinine Ratio 40.4; Calcium 8.5 mg/dL (8.5-10.1); Potassium 4.5 mmol/L (3.5-5.1)
[2021-04-05 10:47] LABS: White Blood Cell 36.7 10^3/uL (4.4-10.8)
[2021-04-05 10:49] LABS: Basophils % (manual) 0 (0.0-2.0); Blast Cells 0; Eosinophils % (manual) 0 (0-7); Promyelocytes % 0; Reactive Lymphocytes 0
[2021-04-05] MEDS: VANCOMYCIN 1GM/250ML 250 ML IV SCH (11:53)
[2021-04-05 13:40] LABS: Band Neutrophils % (manual) 35; Lymphocytes % (manual) 8 (10.0-50.0); Metamyelocytes % 7; Monocytes % (manual) 3 (0-12); Myelocytes % 3
[2021-04-05] MEDS ORDERED: LORazepam 2MG/ML-1ML VIAL IV PRN (17:30)
[2021-04-05] MEDS ORDERED: HYDROmorphone HCL 2 MG/ML VL IV PRN (17:30)
[2021-04-06] MEDS ORDERED: MEROPENEM 1GM IVPB 100 ML IV SCH (02:00)
[2021-04-06] MEDS ORDERED: FAMOTIDINE (10MG/ML) 2ML VL IV SCH (10:00)
== END 2021-04-05 23:13 | DRG 870 ==
LOC: ER 01:31 → EDBD 01:31 → TELE 06:14 → TELE-EAST 10:10 → ICU WEST 03-27 16:35
PROVIDERS: ADMIT Nurse Practitioner Family; ATTEND Internal Medicine
PROC: XW033E5 Introduction of Remdesivir Anti-infective into Peripheral Vein, Percutaneous Approach, New Technology Group 5 (ICD-10-PCS; 2021-03-26)
PROC: 5A09357 Assistance with Respiratory Ventilation, Less than 24 Consecutive Hours, Continuous Positive Airway Pressure (ICD-10-PCS; 2021-03-26)
PROC: 5A1955Z Respiratory Ventilation, Greater than 96 Consecutive Hours (ICD-10-PCS; principal; 2021-03-27)
PROC: 4A133B1 Monitoring of Arterial Pressure, Peripheral, Percutaneous Approach (ICD-10-PCS; 2021-03-27)
PROC: 03HY32Z Insertion of Monitoring Device into Upper Artery, Percutaneous Approach (ICD-10-PCS; 2021-03-27)
PROC: 4A133J1 Monitoring of Arterial Pulse, Peripheral, Percutaneous Approach (ICD-10-PCS; 2021-03-27)
PROC: 0BH17EZ Insertion of Endotracheal Airway into Trachea, Via Natural or Artificial Opening (ICD-10-PCS; 2021-03-27)
PROC: 02HV33Z Insertion of Infusion Device into Superior Vena Cava, Percutaneous Approach (ICD-10-PCS; 2021-03-27)
PROC: B548ZZA Ultrasonography of Superior Vena Cava, Guidance (ICD-10-PCS; 2021-03-27)
PROC: 4A133B1 Monitoring of Arterial Pressure, Peripheral, Percutaneous Approach (ICD-10-PCS; 2021-04-02)
PROC: 4A133J1 Monitoring of Arterial Pulse, Peripheral, Percutaneous Approach (ICD-10-PCS; 2021-04-02)
PROC: 03HY32Z Insertion of Monitoring Device into Upper Artery, Percutaneous Approach (ICD-10-PCS; 2021-04-02)
PROC: 0W9B30Z Drainage of Left Pleural Cavity with Drainage Device, Percutaneous Approach (ICD-10-PCS; 2021-04-05)
DX: A41.89 Other specified sepsis (principal); U07.1 COVID-19; J96.01 Acute respiratory failure with hypoxia; J12.82 Pneumonia due to coronavirus disease 2019; J93.0 Spontaneous tension pneumothorax; R65.21 Severe sepsis with septic shock; J45.901 Unspecified asthma with (acute) exacerbation; N17.9 Acute kidney failure, unspecified; E66.9 Obesity, unspecified; Z68.31 Body mass index [BMI] 31.0-31.9, adult; E11.9 Type 2 diabetes mellitus without complications; I67.1 Cerebral aneurysm, nonruptured; I10 Essential (primary) hypertension; E78.5 Hyperlipidemia, unspecified; D89.839 Cytokine release syndrome, grade unspecified; E86.1 Hypovolemia; Z66 Do not resuscitate; I95.9 Hypotension, unspecified; B96.1 Klebsiella pneumoniae [K. pneumoniae] as the cause of diseases classified elsewhere; E87.5 Hyperkalemia; T38.0X5A Adverse effect of glucocorticoids and synthetic analogues, initial encounter; Y92.89 Other specified places as the place of occurrence of the external cause
CPT/HCPCS: 36415; 36600; 71045; 71275; 74018; 80048; 80053; 80076; 80202; 81001; 82728; 82805; 82962; 83036; 83605; 83615; 83735; 83880; 84484; 85007; 85025; 85027; 85379; 85610; 85730; 86141; 87040; 87070; 87077; 87081; 87086; 87186; 87205; 87426; 93005; 93306; 93970; 94003; 94640; 94660; G0378; J0696; J1100; J1815; J2185; J2250; J2405; J2704; J3490